=== PATIENT | male | born 1975 | race Caucasian/White ===

== ENCOUNTER → 2017-11-05 | Outpatient (CLI) | payer MEDICARE, OTHER ==
[2017-11-05 14:05] LABS: APPEARANCE,URINE CLEAR; BILIRUBIN,URINE NEGATIVE (NEGATIVE); COLOR,URINE YELLOW; GLUCOSE, URINE NEGATIVE (NEGATIVE); KETONES,URINE NEGATIVE (NEGATIVE); LEUKOCYTE ESTERASE,URINE NEGATIVE (NEGATIVE); NITRITE,URINE NEGATIVE (NEGATIVE); PROTEIN,URINE NEGATIVE (NEGATIVE); URINE SPECIFIC GRAVITY 1.013; UROBILINOGEN,URINE NEGATIVE mg/dL (<2.0)
[2017-11-05 14:11] LABS: ALANINE AMINOTRANSFERASE 59 U/L (21-72); ALBUMIN 4.5 g/dL (3.5-5.0); ALKALINE PHOSPHATASE 74 U/L (38-126); ANION GAP 9 (5-19); ASPARTATE AMINO TRANSFERASE 37 U/L (17-59); BILIRUBIN,DIRECT 0.5 mg/dL (0.0-0.4); BLOOD UREA NITROGEN 12 mg/dL (7-20); CALCIUM 9.2 mg/dL (8.4-10.2); CARBON DIOXIDE 27 mmol/L (22-30); CHLORIDE 102 mmol/L (98-107); GLUCOSE 84 mg/dL (75-110); POTASSIUM 4.3 mmol/L (3.6-5.0); SODIUM 138.2 mmol/L (137-145); TOTAL PROTEIN 6.9 g/dL (6.3-8.2)
== END ==
LOC: OD 12:33
PROVIDERS: ATTEND Family Medicine
DX: Z02.4 Encounter for examination for driving license (principal)
CPT/HCPCS: 36415; 80053; 81001; 83036

== ENCOUNTER → 2018-02-20 | Outpatient (CLI) | payer MEDICARE, OTHER ==
[2018-02-20 15:18] LABS: ABSOLUTE EOSINOPHILS # (AUTO) 0.1 10^3/uL (0.0-0.6); ABSOLUTE LYMPHOCYTES (AUTO) 0.4 10^3/uL (0.5-4.7); ABSOLUTE MONOCYTES (AUTO) 0.4 10^3/uL (0.1-1.4); ABSOLUTE NEUT (AUTO) 2.8 10^3/uL (1.7-8.2); EOSINOPHILS % (AUTO) 1.8 % (0-6); HEMATOCRIT 41.3 % (37.9-51.0); HEMOGLOBIN 14.3 g/dL (13.5-17.0); LYMPHOCYTES % (AUTO) 10.3 % (13-45); MEAN CORPUSCULAR HEMOGLOBIN 30.4 pg (27.0-33.4); MEAN CORPUSCULAR HGB CONC 34.6 g/dL (32.0-36.0); MEAN CORPUSCULAR VOLUME 88 fl (80-97); PLATELET COUNT 258 10^3/uL (150-450); RED CELL DISTRIBUTION WIDTH 13.4 % (11.5-14.0); SEGMENTED NEUTROPHILS % (AUTO) 74.9 % (42-78); TOTAL CELLS COUNTED % (AUTO) 100 %; WHITE BLOOD COUNT 3.7 10^3/uL (4.0-10.5)
[2018-02-20 15:36] LABS: ALANINE AMINOTRANSFERASE 512 U/L (21-72); ALBUMIN 4.6 g/dL (3.5-5.0); ALKALINE PHOSPHATASE 107 U/L (38-126); ANION GAP 10 (5-19); ASPARTATE AMINO TRANSFERASE 207 U/L (17-59); BILIRUBIN,DIRECT 0.3 mg/dL (0.0-0.4); BILIRUBIN,TOTAL 0.6 mg/dL (0.2-1.3); BLOOD UREA NITROGEN 12 mg/dL (7-20); CALCIUM 9.2 mg/dL (8.4-10.2); CARBON DIOXIDE 28 mmol/L (22-30); CHLORIDE 102 mmol/L (98-107); GLUCOSE 98 mg/dL (75-110); POTASSIUM 4.5 mmol/L (3.6-5.0); SODIUM 139.7 mmol/L (137-145); TOTAL PROTEIN 6.9 g/dL (6.3-8.2)
== END ==
LOC: OD 14:07
PROVIDERS: ATTEND Family Medicine
DX: Z02.1 Encounter for pre-employment examination (principal); Z79.899 Other long term (current) drug therapy
CPT/HCPCS: 36415; 80053; 83036; 85025

== ENCOUNTER → 2018-03-13 | Outpatient (CLI) | payer MEDICARE, OTHER ==
--- NOTE | 2018-03-13 13:44 | RADIOLOGY REPORT (SQ) ---
EXAM DESCRIPTION: U/S CHEST COMPLETED DATE/TIME: 03/13/2018 10:21 am REASON FOR STUDY: LOCALIZED SWELLING, MASS AND LUMP, TRUNK (R22.2) COMPARISON: No previous chest imaging for comparison TECHNIQUE: Patient presents with a palpable abnormality over the right upper back. Ultrasound of th is area was performed, including color flow and grayscale images, static and cine loop images saved t o pac's. LIMITATIONS: None. FINDINGS: In the area of palpable abnormality right upper back, just deep to the subcutaneous fat a well-circumscribed mixed echogenicity nodule is present, 3 x 2.4 x 1.7 cm in size. No internal color flow. Punctate calcifications are present. There is acoustic through transmission. This could rep resent an enlarged sebaceous gland/sebaceous cyst with debris. Surgical consultation recommended IMPRESSION: Probable sebaceous cyst, subcutaneous fat posterior right upper back. TECHNICAL DOCUMENTATION: JOB ID: [id number] [employer]- All Rights Reserved Reading location - IP/workstation name: [email or web address]
== END ==
LOC: RAD 09:09
PROVIDERS: ATTEND Family Medicine
DX: R22.2 Localized swelling, mass and lump, trunk (principal)
CPT/HCPCS: 76604

== ENCOUNTER 2018-04-25 06:49 | Day surgery (SDC) | payer MEDICARE, OTHER ==
[~2018-04-25 06:49] MED LIST: CEFAZOLIN 1 GM/D5W RTU 1 GM/50 ML RTUPB IV PRN; LACTATED RINGERS 1000 ML IV PRN; LIDOCAINE 0.5% INJ-PF (5 MG/ML) 50 ML SDV SUBCUT PRN
[2018-04-25] MEDS ORDERED: CEFAZOLIN 1 GM/D5W RTU 1 GM/50 ML RTUPB IV ONE (06:59)
[2018-04-25] MEDS ORDERED: BUPIVACAINE HCL 0.5%-EPI 1:200000 INJ/PF 30 ML VIAL ONE (08:30)
[2018-04-25] MEDS ORDERED: MIDAZOLAM 2 MG/2 ML INJ ONE (08:44)
[2018-04-25] MEDS ORDERED: PROPOFOL INJ 200 MG/20 ML VIAL IV ONE (08:44)
[2018-04-25] MEDS ORDERED: ONDANSETRON HCL INJ/PF 4 MG/2 ML SDV ONE (08:44)
[2018-04-25] MEDS ORDERED: FENTANYL CITRATE INJ/PF 100 MCG/2 ML AMPUL ONE (08:44)
[2018-04-25] MEDS ORDERED: MORPHINE SULFATE 10 MG/ML INJ IV PRN (09:29)
[2018-04-25] MEDS ORDERED: FENTANYL CITRATE INJ/PF 100 MCG/2 ML AMPUL IV PRN ×3 (09:29)
[2018-04-25] MEDS ORDERED: DIPHENHYDRAMINE HCL 50 MG/ML VIAL IV PRN (09:29)
[2018-04-25] MEDS ORDERED: MEPERIDINE HCL/PF INJ 25 MG/1 ML DISP.SYRIN IV PRN (09:29)
[2018-04-25] MEDS ORDERED: PROMETHAZINE HCL INJ 25 MG/1 ML VIAL IV PRN ×2 (09:29)
--- NOTE | 2018-04-25 09:40 | Operative Report ---
Nonrecallable Operative Report DATE OF SURGERY: 04/25/18 PREOPERATIVE DIAGNOSIS: sebaceous cyst back POSTOPERATIVE DIAGNOSIS: sebaceous cyst back OPERATION: excision of sebaceous cyst back SURGEON: ISH BRADSHAW 1ST MANAGER EQUITY: RADHA MEI ANESTHESIA: Moderate Sedation TISSUE REMOVED OR ALTERED: sebaceous cyst back COMPLICATIONS: none ESTIMATED BLOOD LOSS: 10cc INTRAOPERATIVE FINDINGS: see dictation PROCEDURE: see dictation
[2018-04-25] MEDS ORDERED: OXYCODONE-ACETAMINOPHEN 5-325 MG TABLET PO PRN (09:42)
--- NOTE | 2018-04-25 09:42 | Discharge Summary ---
Discharge Summary (SDC) - Discharge Final Diagnosis: sebaceous cyst back Date of Surgery: 04/25/18 Condition: Good Treatment or Instructions: ok to shower tomorrow. ok to remove and replace dressing after shower Referrals: JENISE DIOP MD [Primary Care Provider] - Discharge Diet: As Tolerated Discharge Activity: Activity As Tolerated Report the Following to Your Physician Immediately: Swelling, Warmth, Increased Soreness
--- NOTE | 2018-04-25 09:53 | OPERATIVE REPORT E ---
Operative Report NAME: JESS PAPPAS : 1975 AGE: 43Y DATE OF SURGERY: 04/25/2018 ROOM: PREOPERATIVE DIAGNOSIS: SEBACEOUS CYST, BACK. POSTOPERATIVE DIAGNOSIS: SEBACEOUS CYST, BACK. OPERATION: Excision of sebaceous cyst, mid back. SURGEON: ISH BRADSHAW M.D. PROCEDURE RN: DONNA Paz, who was present for the entire procedure for wound retraction and wound closure. PROCEDURE: The patient was brought to the operating room in awake, alert, and stable condition and placed on the operating table in a left lateral decubitus position and given IV sedation. The cyst on his mid back was approximately 4 to 6 cm in diameter. After anesthetizing the skin with 1% lidocaine with epinephrine, an elliptical incision was made around the punctate sinus of the cyst in an elliptical fashion in which it was approximately 6 cm long by approximately 1.5 cm wide. We then carried our dissection down through subcutaneous tissue with a knife into the subcutaneous fat. Once we reached the subcutaneous fat we kept the cyst within its capsule and excised the fat down to the trapezius muscle with Bovie cautery. The cyst was and a small amount of skin was removed. We obtained hemostasis of the subcutaneous fat and the fascia of the trapezius muscle with Bovie cautery. Once good hemostasis was obtained we closed the subcutaneous tissue with interrupted 3-0 Vicryl suture and then closed the skin with interrupted 3-0 nylon suture. A sterile dressing was applied which completed the procedure. ESTIMATED BLOOD LOSS: Approximately 10 mL. SPONGE AND NEEDLE COUNTS: Correct x2. The patient was transferred to Recovery in stable condition, no complications. DICTATING PHYSICIAN: ISH BRADSHAW M.D. [id number] PHY#: [id number] ID: [id number] JOB#: [id number] ACCT: [id number] cc:ISH BRADSHAW M.D. >
[2018-04-25] MEDS ORDERED: (PENDING PHARMACY ID) (Fingolimod Hcl [Gilenya] 0.5 MG) PO SCH (10:00)
[2018-04-25 11:17] VITALS: BP 107/71
== END 2018-04-25 11:00 | disposition home or self-care (01) ==
LOC: OROUT 06:49
PROVIDERS: ATTEND Surgery
DX: L72.3 Sebaceous cyst (principal); G35 Multiple sclerosis; G47.33 Obstructive sleep apnea (adult) (pediatric); Z79.899 Other long term (current) drug therapy
CPT/HCPCS: 88304 ×2; 11406; J2250; J3490; J0690; J3010; J2405; J2704; 300